=== PATIENT | male | born 1970 | race Caucasian/White ===

== ENCOUNTER 2018-03-08 00:59 | Emergency (ER) | payer SELFPAY ==
[~2018-03-08] VITALS: Ht 177.8 cm; Wt 137.0 kg
[2018-03-08 02:37] LABS: BASOPHILS % 0.3 % (0.0-2.0); HEMOGLOBIN. 15.6 g/dL (14.0-18.0); LYMPHOCYTES % 10.8 % (20.0-50.0); MEAN CORPUSCULAR HEMOGLOBIN 29.6 pg (28.0-32.0); MEAN CORPUSCULAR VOLUME 87.4 fL (80.0-94.0); MEAN PLATELET VOLUME 8.4 fl (7.4-10.4); MONOCYTES % 7.2 % (2.0-8.0); NEUTROPHILS % 80.7 % (40.0-76.0); PLATELET 270 x1000/uL (130-400); RED BLOOD CELL COUNT 5.27 mill/uL (4.7-6.1); RED CELL DISTRIBUTION WIDTH 13.5 % (11.6-14.6)
[2018-03-08 02:45] LABS: INR 1.1; PARTIAL THROMBOPLASTIN TIME 28.2 sec (23.4-31.0)
[2018-03-08] MEDS ORDERED: LISINOPRIL 20MG TABLET PO ONE (03:45)
[2018-03-08 05:04] VITALS: BP 189/120
== END 2018-03-08 05:32 | disposition home or self-care (01) ==
LOC: ER 00:59
DX: R04.0 Epistaxis (principal); I10 Essential (primary) hypertension
CPT/HCPCS: 30901; 36415; 99284

== ENCOUNTER 2018-03-08 15:47 | Inpatient (IN) | payer SELFPAY ==
[~2018-03-08] VITALS: Ht 177.8 cm; Wt 138.3 kg
[2018-03-08] MEDS ORDERED: OXYMETAZOLINE HCL NASAL SPRAY 15ML BOTHNSTRLS STA (16:23)
[2018-03-08] MEDS ORDERED: LABETALOL HCL 20MG/4ML CARPUJECT IV ONE ×2 (16:30→17:45)
[2018-03-08] MEDS ORDERED: LISINOPRIL 40MG TABLET PO ONE (17:45)
[2018-03-08] MEDS ORDERED: CARVEDILOL 25MG TABLET PO ONE (17:45)
[2018-03-08] MEDS ORDERED: HYDRALAZINE 20MG/ML VIAL IV ONE (19:00)
[2018-03-08 19:31] LABS: BASOPHILS % 0.4 % (0.0-2.0); EOSINOPHILS % 1.4 % (0.0-5.0); HEMATOCRIT. 44.5 % (42.0-52.0); LYMPHOCYTES % 20.9 % (20.0-50.0); MEAN CORPUSCULAR HEMOGLOBIN 29.5 pg (28.0-32.0); MEAN CORPUSCULAR VOLUME 87.3 fL (80.0-94.0); MEAN PLATELET VOLUME 8.1 fl (7.4-10.4); MONOCYTES % 9.2 % (2.0-8.0); NEUTROPHILS % 68.1 % (40.0-76.0); PLATELET 267 x1000/uL (130-400); RED BLOOD CELL COUNT 5.09 mill/uL (4.7-6.1); RED CELL DISTRIBUTION WIDTH 13.6 % (11.6-14.6)
[2018-03-08 19:33] LABS: CHLORIDE 102 mEq/L (98-107)
[2018-03-08 23:10] VITALS: BP 192/122
[2018-03-08] MEDS ORDERED: DIPHENHYDRAMINE 50MG/ML VIAL IV PRN (23:30)
[2018-03-08] MEDS ORDERED: ONDANSETRON HCL 4MG/2ML INJ IV PRN (23:30)
[2018-03-08] MEDS ORDERED: ACETAMINOPHEN 325MG TABLET PO PRN (23:30)
[2018-03-08] MEDS ORDERED: HYDRALAZINE 20MG/ML VIAL IV PRN (23:30)
[2018-03-08] MEDS ORDERED: CLONIDINE 0.1MG TABLET PO PRN (23:30)
[2018-03-09] VITALS (10 sets, daily range): BP systolic 115–191; BP diastolic 64–128
[2018-03-09] MEDS ORDERED: POTASSIUM CHLORIDE 20MEQ TABLET SR PO NR (01:30)
[2018-03-09] MEDS: SODIUM CHLORIDE 0.9% INJ 3ML FLUSH IVF SCH ×2 (06:00→14:35)
[2018-03-09] MEDS ORDERED: NIFEDIPINE XL 60MG TAB PO SCH (09:00)
[2018-03-09] MEDS ORDERED: LISINOPRIL 20MG TABLET PO SCH (09:00)
[2018-03-09 12:36] LABS: CHLORIDE 104 mEq/L (98-107)
== END 2018-03-09 17:44 | disposition home or self-care (01) | DRG 199 ==
LOC: ER 15:47 → 3WST 19:47 → EDBEDREQ 19:52 → EDBEDREQTM 19:52 → EDBEDREQSVC 19:52 → ENRESERV 21:24
PROVIDERS: ADMIT Internal Medicine; ATTEND Internal Medicine
DX: I16.1 Hypertensive emergency (principal); E87.6 Hypokalemia; R04.0 Epistaxis; I10 Essential (primary) hypertension; Z79.899 Other long term (current) drug therapy; Z90.49 Acquired absence of other specified parts of digestive tract
CPT/HCPCS: 36415; 71045; 80048; 83880; 84484; 93005; 96374; 96375; 99291; J0360; J3490